=== PATIENT | male | born 1945 | race Asian ===

== ENCOUNTER 2024-12-06 08:58 | Day surgery (SDC) | payer OTHER, MEDICARE, SELFPAY ==
[2024-12-05 13:11] VITALS: BMI 24.4
== END 2024-12-06 11:00 | disposition home or self-care (01) ==
LOC: CATH 08:58
PROVIDERS: ATTENDING PHYSICIAN Internal Medicine Cardiovascular Disease; FAMILY PHYSICIAN Internal Medicine; OTHER PHYSICIAN Internal Medicine Cardiovascular Disease
DX: I48.0 Paroxysmal atrial fibrillation (principal); I48.92 Unspecified atrial flutter; R00.1 Bradycardia, unspecified; I12.9 Hypertensive chronic kidney disease with stage 1 through stage 4 chronic kidney disease, or unspecified chronic kidney disease; I27.20 Pulmonary hypertension, unspecified; J43.9 Emphysema, unspecified; N40.0 Benign prostatic hyperplasia without lower urinary tract symptoms; M81.0 Age-related osteoporosis without current pathological fracture; F32.A Depression, unspecified; Z87.891 Personal history of nicotine dependence; Z86.718 Personal history of other venous thrombosis and embolism; Z79.01 Long term (current) use of anticoagulants; Z79.82 Long term (current) use of aspirin
CPT/HCPCS: 92960; 93005

== ENCOUNTER → 2024-12-29 16:06 | Outpatient (REF) | payer MEDICARE, OTHER, SELFPAY | LOC: RCS 16:06 | PROVIDERS: ATTENDING PHYSICIAN Internal Medicine Cardiovascular Disease; FAMILY PHYSICIAN Internal Medicine | DX: I09.9 Rheumatic heart disease, unspecified (principal) | CPT/HCPCS: 93306 ==

== ENCOUNTER → 2024-12-30 07:57 | Outpatient (REF) | payer MEDICARE, OTHER, SELFPAY ==
[2024-12-30 09:07] LABS: % Basophils 0.5 % (0-2); % Immature Granulocytes 0.3 % (0-0.5); % Lymphocytes 26.7 % (20.5-51.1); % Monocytes 7.6 % (1.7-9.3); % Neutrophils 59.9 % (42.2-75.2); Absolute Eosinophils 0.3 10^3/uL (0-0.7); Absolute Lymphocytes 1.5 10^3/uL (1.2-3.4); Absolute Monocytes 0.4 10^3/uL (0.1-0.6); Absolute Neutrophils 3.5 10^3/uL (1.4-6.5); Hematocrit 44.6 % (39.0-52.0); Hemoglobin 14.6 g/dL (13.0-18.0); Mean Corp Hgb Conc. 32.7 g/dL (33.0-37.0); Mean Corpuscular Hgb 30.2 pg (27.0-31.0); Mean Corpuscular Volume 92.3 fL (80.0-94.0); Mean Platelet Volume 10.4 fL (7.4-10.4); Nucleated Red Blood Cells % 0 % (-); Platelet Count 171 10^3/uL (130-400); Red Blood Cell Count 4.83 10^6/uL (4.70-6.10); Red Cell Dist. Width 12.9 % (11.5-14.5); White Blood Cell Count 5.8 10^3/uL (4.8-10.8)
[2024-12-30 09:38] LABS: ALT (SGPT) 15 U/L (0-50); AST (SGOT) 19 U/L (17-59); Alkaline Phosphatase 83 U/L (38-126); Blood Urea Nitrogen 21 mg/dl (9-20); Calcium 9.3 mg/dl (8.4-10.2); Carbon Dioxide 25 mmol/L (22-30); Chloride 110 mmol/L (98-107); Glucose 101 mg/dl (70-99); Potassium 4.1 mmol/L (3.5-5.1); Sodium 142 mmol/L (135-145); Total Bilirubin 0.9 mg/dl (0.2-1.3); Total Protein 7.4 g/dl (6.3-8.2); eGFR 55.88
== END ==
LOC: SDSPAT 07:57
PROVIDERS: ATTENDING PHYSICIAN Internal Medicine Cardiovascular Disease; FAMILY PHYSICIAN Internal Medicine
DX: I48.92 Unspecified atrial flutter (principal); I48.0 Paroxysmal atrial fibrillation; I09.89 Other specified rheumatic heart diseases; R00.2 Palpitations; I10 Essential (primary) hypertension
CPT/HCPCS: 36415; 80053; 85025; 86850; 86900; 86901; 93005

== ENCOUNTER 2025-01-10 06:10 | Day surgery (SDC) | payer MEDICARE, OTHER, SELFPAY ==
[2024-12-30 09:03] VITALS: BMI 25.1
[2025-01-10] VITALS (13 sets, daily range): BP systolic 90–128; BP diastolic 55–77
--- NOTE | 2025-01-10 10:18 | ITS.CL.ABL ---
Methods Specialist Engineer - Ablation
Ablation
Procedure Report:
AFIB ablation:
Mr. De León is a very pleasant 79 yr old gentleman with h/o persistent AF and flutters, history of sinus bradycardia and admitted heart block with prior history of rheumatic heart disease with moderate MR and mild mitral stenosis, moderate pulmonary
hypertension, extensive left lower extremity DVT in 2020 on chronic Eliquis, emphysema, CKD, and is recommended AF/FL ablation. Patient presented today to the EP lab for atrial fibrillation / flutter ablation.
Date of Procedure:
01/10/2025
Indications:
Recurrent atrial fibrillation / atrial flutter
Pre-Operative Diagnosis:
Persistent atrial fibrillation /Atrial flutter
Post-Operative Diagnosis:
Persistent atrial fibrillation /Atrial flutter
Procedure Performed:
Atrial fibrillation ablation with pulmonary vein isolation
Posterior wall isolation
Anterior wall focal atrial tachycardia
Left atrial flutter � roof dependent ablation
Mitral isthmus ablation for sarbjit-mitral flutter ablation
Performing Physician:
Yanet Rosenebrg MD
Assistants:
EP staff
Anesthesia:
See anesthesia records
Detailed Description of the Procedure:
Written informed consent was obtained from the patient after a full explanation of the risks and benefits of the procedure including the risks of sedation and anesthesia.
The patient was brought to the electrophysiology laboratory in stable condition in fasting state. Continuous electrocardiographic and hemodynamic monitoring was initiated.
The initial rhythm was atrial fibrillation.
Time out:
The procedure site was meticulously prepared with surgical scrub and allowed to dry with no pooling. Sterile draping was applied to cover the procedure site. The image intensifier was draped with sterile bag and positioned over the patient.
Prior to the start of the procedure a surgical pause was performed with in agreement from anesthesia, EP staff with double identifier and explanation of the procedure, plan and site of the procedure stated with allergies and medications and
pertinent labs reviewed.
After infusion of local anesthetic, vascular access was obtained under ultrasound guidance and sheaths were placed over guide wire as detailed below. The images were stored in patient chart.
Sheaths:
��������������� Agilis sheath in right femoral vein upgraded from 10Fr in right femoral vein
��������������� 9Fr in right femoral vein
���������������
Catheters:
��������������� The Affera Sphere 9 catheter -bidirectional D/F� - at locations of HRA, RV, LA and LV.
��������������� ICE catheter - at locations of RA, SVC, and RV.
��������������� Bard decapolar catheter in RA and CS
���������������
A 7000 units of heparin was given
Intracardiac ECHO:
An 8-Slovenian AcuNav intracardiac ECHO (ICE) probe was advanced through the 9-Slovenian sheath in the right femoral vein into the right atrium under fluoroscopic and ICE ultrasound image guidance and a baseline ECHO study was performed. The left atrial
size was severely dilated. There was trace tricuspid regurgitation. There was moderate mitral regurgitation. The aortic valve was normal. There was normal left ventricular systolic function. There is no pericardial effusion. All the four veins were
identified and has good flow identified. No definite clot seen on two views.�
During the procedure, ICE was used for monitoring of complications, guidance of trans-septal puncture, monitor the catheter position and tracking ablation lesions. No change in the pericardial space noted throughout the procedure.
Trans-septal Puncture:
Heparin was initiated and infused to maintain appropriate ACT. A J-tipped guidewire was advanced through into the superior vena cava under fluoroscopic and ICE guidance. The Agilis sheath was advanced into the superior vena cava over a guidewire. A
BRK needle with stylet was advanced inside the Agilis sheath. The apparatus was withdrawn until it was in contact with the fossa ovalis. The position was adjusted based on fluoroscopy and ultrasound images from ICE. Under fluoroscopic, hemodynamic
and ICE ultrasound guidance, left atrium was cannulated by advancing the needle. Once atrial septum was cannulated, the needle was pulled back and the guide wire was advanced through the needle into the left atrium. The guide wire was advanced into
the left superior pulmonary vein. Both the sheath and the dilator was advanced into the left atrium. The dilator with the needle was withdrawn. Blood was aspirated from the Agilis sheath and arterial blood confirmed. The sheath was flushed. Saline
injection noted into the left atrium on ICE. The waveform of the LA pressure was recorded. The mapping catheter was advanced in the Agilis sheath into the left pulmonary vein.
3D Electroanatomic Mapping:
Using the Sphere 9 Affera catheter advanced through Agilis sheath into the left atrium, an electroanatomic map (EAM) of the left atrium was created using [employer]� mapping system with [employer] software. The map was used for localization of catheter
position and tacking of ablation lesions.
The EAM of the left atrium showed a total of 4 PVs with two left and a two sided pulmonary veins. There was sporadic scarring noted in the LA. The posterior wall had scattered signals. There was a large areas of scar noted on the anterior wall with
severely fractionated signals on the anterior wall. The LA was severely dilated. �
Following the EAM, preparation were made for ablation.
Ablation:
Ablation # 1: Atrial fibrillation ablation - Pulmonary vein Isolation:
Pulsed field ablation was performed using an open irrigation, bidirectional, contact sensing, dual energy ablation catheter (Affera sphere -9) by completing the circumferential lesions around the left and right pulmonary veins achieving pulmonary
vein isolation.
All PVI were rechecked at the end of the case and remained isolated with dissociated and local capture with pacing. Entrance and exit block were demonstrated in all veins.
The atrial fibrillation organized into atrial flutter.
Ablation # 2: Roof line Formation:
A decapolar catheter was placed in CS and lateral RA wall showing left atrial origin. The flutter was 270 msec and was mapped in the LA. It was involving both the roof and the perimitral component.
Decision was made to sever the roof component first.
A set of pulsed field ablations were placed on the roof line connecting the left superior pulmonary vein ablation lesions to the right superior pulmonary vein lesions rings.
The LA was mapped indicating the block in the roof with propagation of electric wave from floor to the roof in the posterior wall.
Ablation # 3: Mitral isthmus ablation for sarbjit-mitral flutter ablation
Mitral line was done for the mitral isthmus from the right anterior PV antrum to the anteior wall with ablation lesions and continued to the mitral annulus. The pulsed field ablations were placed at the isthmus and switched to radiofrequency once
close to the mitral annulus.
The tachycardia terminated into sinus rhythm / junctional rhythm. The CS was paced and sinus recovered.
Later patient went into focal atrial tachycardia.
Ablation # 4: Focal atrial tachycardia ablation
The tachycardia was noted to be focal at the base of the LEODAN. The earliest point was identified and pulsed field ablation was placed at the origin terminating into sinus rhythm.
The anterior mitral line was connected to the ablation lesion and to the LEODAN to avoid precipitating any furthre flutters.
A set of Pulsed field ablations were placed on anterior wall adjacent to the LEODAN. Additional ablations were placed to remove any further fractionated signal areas.
Ablation # 5: Posterior wall isolation with the Box lesions set Formation:
There was a significant fractionation seen in the posterior wall and LA AF foci along with CFAE made it clear as the posterior wall is critical in maintaining the atrial fibrillation and the decision was made to isolate the posterior wall by
creating a �Box� lesions.
A set of Pulsed field ablations were placed on the floor line connecting the left inferior pulmonary vein ablation lesions to the right inferior pulmonary vein lesions rings.
The sphere 9 in the posterior wall showed entrance block and the pacing from the posterior wall showed no exit from the box lesions confirming the exit block.
Confirmation of the PVI and bidirectional block:
Following achievement of entrance block at the pulmonary veins, pacing from the Sphere 9 affera catheter in each of the four veins at 20 milliamps for 4 milliseconds showed entrance and exit block.
The LA was mapped with The Affera� mapping system with Prism-1 software in sinus rhythm confirming the line of block at the ablation lesions lines.
�
The AV key functions are deemed within normal range. The HV was normal.
All PVI were rechecked at the end of the case. Entrance and exit block were demonstrated.
Procedure End
ICE study was done again that showed no epicardial accumulation. No complications noted.
Following the completion of the EP study, catheters were removed. Protamine 40 mg was given at the end of the procedure and ACT was checked repeatedly. The sheaths were removed and hemostasis achieved with VASCADE and manual compression.
Left atrial Pressure:
Pre-Procedure: Mean LA pressure was 9 mmHg (AF)
Post-Procedure: Mean LA pressure was 8mmHg (sinus)
Post-Procedure: Mean RA pressure was 6mmHg
Estimated Blood loss:
<10 cc
Specimens Removed:
None.
Implants / Devices:
None
Urine output:
None
Packs / Drains/ Tubes:
None
Instrument / Sponge Count Correct:
Yes
Complications of the Procedure:
None
Condition of Patient at Time of Transfer:
Hemodynamically stable with no neurological or vascular compromise.
Summary:
Successful atrial fibrillation ablation with pulmonary vein isolation, posterior wall isolation, roof flutter ablation, anterior wall focal atrial tachycardia ablation, mitral isthmus ablation for sarbjit-mitral flutter ablation,
[2025-01-10 12:13] LABS: ACT-LR - POC > 397 Seconds (116-155)
[2025-01-10 12:13] LABS: ACT-LR - POC > 397 Seconds (116-155)
[2025-01-10 12:13] LABS: ACT-LR - POC > 397 Seconds (116-155)
--- NOTE | 2025-01-10 13:48 | W.PN.UPDATE ---
Update Note
Progress Note Update
Pt seen post PFA. Right groin site with vascade closure, no ht/bleeding, oob ambulating, urinating without difficulty. Post EKG SB 58, tele ranging in 50s post procedure. To start amiodarone 200mg BID for atrial tachycardia, will start in AM. Resume
eliquis tonight at usual time. Followup at [facility] as scheduled. Home today if groin site/tele remain stable.
== END 2025-01-10 13:35 | disposition home or self-care (01) ==
LOC: CATH 06:10
PROVIDERS: ATTENDING PHYSICIAN Internal Medicine Cardiovascular Disease; FAMILY PHYSICIAN Internal Medicine
DX: I48.19 Other persistent atrial fibrillation (principal); I48.92 Unspecified atrial flutter; I47.19 Other supraventricular tachycardia; Z79.01 Long term (current) use of anticoagulants; I12.9 Hypertensive chronic kidney disease with stage 1 through stage 4 chronic kidney disease, or unspecified chronic kidney disease; N18.9 Chronic kidney disease, unspecified; Z79.899 Other long term (current) drug therapy
CPT/HCPCS: C1769; C1730; C1766; C1733; C1892; C1759; 85347; 86900; 86901; 93005; 93655; 93656; 93657; C1760